=== PATIENT | female | born 1945 | race Caucasian/White ===

== ENCOUNTER 2019-12-20 12:49 | Emergency (ER) | payer MEDICARE ==
--- NOTE | 2019-12-20 13:27 | ED Physician Documentation ---
PD HPI CHEST PAIN - Stated complaint Stated Complaint: CHEST PX - Chief complaint Chief Complaint: Cardiac - History obtained from History obtained from: Patient - History of Present Illness Timing - details: Intermittant Pain level max: 3 Pain level now: 2 Quality: Pressure Location: Left chest Radiation: Left upper extremity Improved by: Nothing Worsened by: Other (nothing) Associated symptoms: Shortness of air, Feeling faint / dizzy. No: Diaphoresis, Nausea, Vomiting, General Weakness, Palpitations, Cough Recently seen: Not recently seen - Additional information Additional information: 74-year-old female presents to the emergency department stating that she has left-sided chest pain and left arm pain for the past 1 to 2 weeks. She states that it was only lasting 1 to 2 minutes at a time last week, now has become more constant. Lasted for 2 hours this morning and is currently lasted for 2 hours with the current episode. She describes it as squeezing of the left chest and left arm. Does not have any cardiac history, but states that she did have a stress test last year that was "stopped early". She does not know why this was stopped earlier if there was any ischemic changes. She took aspirin prior to arrival. She states that she felt short of breath this morning 2. She also states that her legs have been more swollen than usual. No recent surgery. No recent travel. Review of Systems Ten Systems: 10 systems reviewed and negative Constitutional: denies: Fever, Chills Ears: denies: Ear pain Nose: denies: Rhinorrhea / runny nose, Congestion Throat: denies: Sore throat Respiratory: denies: Cough, Wheezing GI: denies: Abdominal Pain, Nausea, Vomiting, Diarrhea Skin: denies: Rash Musculoskeletal: denies: Neck pain, Back pain Neurologic: denies: Headache PD PAST MEDICAL HISTORY - Past Medical History Past Medical History: Yes Cardiovascular: High cholesterol - Allergies Allergies/Adverse Reactions: Allergies Allergy/AdvReac Type Severity Reaction Status Date / Time No Known Drug Allergies Allergy Verified 12/20/19 12:53 - Living Situation Living Arrangement: reports: At home - Social History Does the pt smoke?: No Does the pt have substance abuse?: No - Family History Family history: reports: Non contributory PD ED PE NORMAL - Vitals Vital signs reviewed: Yes - General General: Alert and oriented X 3, No acute distress, Well developed/nourished - HEENT HEENT: PERRL, Moist mucous membranes - Neck Neck: Supple, no meningeal sign, No JVD, No bruit - Cardiac Cardiac: RRR, No murmur, Strong equal pulses - Respiratory Respiratory: No respiratory distress, Clear bilaterally - Abdomen Abdomen: Soft, Non tender, Non distended - Derm Derm: Warm and dry, No rash - Extremities Extremities: No calf tenderness / cord, Other (1+ edema bilateral lower extremity) - Neuro Neuro: Alert and oriented X 3 - Psych Psych: Normal mood, Normal affect Results - Vitals Vitals: Vital Signs - 24 hr 12/20/19 12/20/19 12/20/19 12:54 14:19 14:31 Temperature 36.8 C Heart Rate 64 61 54 L Respiratory 16 16 16 Rate Blood Pressure 144/93 H 157/76 H 122/76 O2 Saturation 96 99 97 12/20/19 12/20/19 12/20/19 14:40 14:55 15:15 Temperature Heart Rate 59 L 63 54 L Respiratory 16 16 16 Rate Blood Pressure 124/72 124/74 108/52 L O2 Saturation 98 96 12/20/19 12/20/19 12/20/19 15:30 16:15 17:00 Temperature Heart Rate 64 64 62 Respiratory 16 16 16 Rate Blood Pressure 110/63 112/78 108/88 H O2 Saturation 98 95 Oxygen O2 Source Room air - EKG (time done) 1302 Rate: Rate (enter#) (64) Rhythm: NSR [place]: Normal Intervals: Normal OR QRS: Normal Ischemia: Normal ST segments - Labs Labs: Laboratory Tests 12/20/19 12/20/19 12/20/19 14:01 14:01 14:01 WBC 6.8 RBC 4.31 Hgb 13.5 Hct 40.3 MCV 93.5 MCH 31.3 H MCHC 33.5 RDW 12.1 Plt Count 108 L MPV 9.1 Neut # (Auto) 4.5 Lymph # (Auto) 1.6 Avery # (Auto) 0.5 Eos # (Auto) 0.2 Baso # (Auto) 0.0 Absolute Nucleated RBC 0.00 Nucleated RBC % 0.0 D-Dimer Sodium 139 Potassium 3.6 Chloride 108 Carbon Dioxide 26 Anion Gap 5.0 L BUN 21 H Creatinine 0.9 Estimated GFR (MDRD) 62 L Glucose 97 Calcium 9.0 Total Bilirubin 0.8 AST 26 ALT 25 Alkaline Phosphatase 55 Troponin I High Sens 2.5 Total Protein 7.1 Albumin 4.6 Globulin 2.5 Albumin/Globulin Ratio 1.8 Lipase 42 12/20/19 12/20/19 14:01 16:40 WBC RBC Hgb Hct MCV MCH MCHC RDW Plt Count MPV Neut # (Auto) Lymph # (Auto) Avery # (Auto) Eos # (Auto) Baso # (Auto) Absolute Nucleated RBC Nucleated RBC % D-Dimer 248.2 Sodium Potassium Chloride Carbon Dioxide Anion Gap BUN Creatinine Estimated GFR (MDRD) Glucose Calcium Total Bilirubin AST ALT Alkaline Phosphatase Troponin I High Sens < 2.3 L Total Protein Albumin Globulin Albumin/Globulin Ratio Lipase - Rads (name of study) cxr Radiology: Prelim report reviewed, EMP read contemporaneously, See rad report (no acute disease) PD MEDICAL DECISION MAKING - ED course Complexity details: reviewed results, re-evaluated patient, considered differential (No ST elevation VA, no aortic dissection, no PE, no tension pneumothorax, no aortic aneurysm), d/w patient, d/w surgical product sales consultant ED course: 74-year-old female presents to the emergency department with chest pain for the past several weeks. Negative high-sensitivity troponin x2. Normal EKG. Discussed the case with Jose L Bell, he will schedule an urgent stress test for her. She had a negative stress echo last year in February. He will also send a note to her primary doctor. She does not want to be admitted to the hospital at this time. She is asymptomatic currently in the emergency department. She will start on a daily aspirin and return if symptoms recur. Patient counseled regarding signs and symptoms for which I believe and urgent re-evaluation would be necessary. Patient with good understanding of and agreement to plan and is comfortable going home at this time This document was made in part using voice recognition software. While efforts are made to proofread this document, sound alike and grammatical errors may occur. Departure - Departure Disposition: Home, Self Care Clinical Impression: Chest pain Qualifiers: Chest pain type: unspecified Qualified Code(s): R07.9 - Chest pain, unspecified Condition: Good Instructions: ED Chest Pain Atypical Unkn Cause Follow-Up: Lucy Payne MD [Primary Care Provider] - Within 1 week Comments: I spoke with Dr. Onel powell and an urgent cardiac stress test has been ordered for you. [facility] will call you for this. Start on 81mg of aspirin daily. Return if you worsen. Avoid strenuous activity. Discharge Date/Time: 12/20/19 17:32
--- NOTE | 2019-12-20 13:28 | XRAY Report ---
Reason: Chest pain Procedure Date: 12/20/2019 Accession Number: [id number] / [id number] Procedure: XR - Chest 1 View X-Ray CPT Code: 99498 Final Report FULL RESULT: EXAM: CHEST RADIOGRAPHY EXAM DATE: 12/20/2019 12:57 PM. CLINICAL HISTORY: Chest pain. COMPARISON: XR CHEST PA AND LAT 03/17/2011 8:21 PM. TECHNIQUE: 1 view. FINDINGS: Lungs/Pleura: No focal opacities evident. No pleural effusion. No pneumothorax. Mediastinum: Within exam limitations, the cardiomediastinal contour is normal. Other: None. IMPRESSION: No acute intrathoracic plain film abnormality. [facility]
[2019-12-20 14:11] LABS: BASOPHILS % (AUTO) 0.4 %; EOSINOPHILS # (AUTO) 0.2 10^3/uL (0.0-0.7); EOSINOPHILS % (AUTO) 2.6 %; HGB - HEMOGLOBIN 13.5 g/dL (12.0-16.0); LYMPHOCYTES # (AUTO) 1.6 10^3/uL (1.5-3.5); LYMPHOCYTES % (AUTO) 22.8 %; MEAN CORPUSCULAR HEMOGLOBIN 31.3 pg (27.0-31.0); MEAN CORPUSCULAR HGB CONC 33.5 g/dL (32.0-36.0); MEAN CORPUSCULAR VOLUME 93.5 fL (81.0-99.0); MEAN PLATELET VOLUME 9.1 fL (7.9-10.8); MONOCYTES # (AUTO) 0.5 10^3/uL (0.0-1.0); MONOCYTES % (AUTO) 7.6 %; NEUTROPHILS # (AUTO) 4.5 10^3/uL (1.5-6.6); NEUTROPHILS % (AUTO) 66.3 %; PLT - PLATELET COUNT 108 10^3/uL (130-450); RED BLOOD COUNT 4.31 10^6/uL (4.20-5.40); RED CELL DISTRIBUTION WIDTH 12.1 % (12.0-15.0); WHITE BLOOD COUNT 6.8 x10^3/uL (4.8-10.8)
[2019-12-20] MEDS: NITROGLYCERIN SL 0.4 MG TABLET SL STA ×3 (14:19→14:43)
[2019-12-20 14:25] LABS: ALBUMIN 4.6 g/dL (3.2-5.5); ALBUMIN/GLOBULIN RATIO 1.8 (1.0-2.2); BILIRUBIN,TOTAL 0.8 mg/dL (0.2-1.0); CREATININE 0.9 mg/dL (0.4-1.0); TOTAL PROTEIN 7.1 g/dL (6.7-8.2)
[2019-12-20 17:27] VITALS: BP 108/88
== END 2019-12-20 17:32 | disposition home or self-care (01) ==
LOC: ED 12:49
DX: R07.89 Other chest pain (principal); E78.00 Pure hypercholesterolemia, unspecified
CPT/HCPCS: 36415; 71045; 80053; 83690; 84484; 85025; 85379; 93005; 99284; A9270